=== PATIENT | female | born 1975 | race American Indian/Alaskan Native ===

== ENCOUNTER 2018-12-03 16:55 | Emergency (ER) | payer MEDICAID, OTHER ==
[2018-12-03 18:55] LABS: Basophils # (Auto) 0.1 K/mm3 (0.0-0.1); Basophils % (Auto) 0.7 % (0.0-1.8); Eosinophils # (Auto) 0.3 K/mm3 (0.0-0.4); Eosinophils % (Auto) 3.4 % (0.0-4.3); Hematocrit 35.6 % (30.3-42.9); Lymphocytes # (Auto) 3.1 K/mm3 (1.2-5.4); Lymphocytes % (Auto) 40.1 % (13.4-35.0); Mean Corpuscular HGB Conc 34 % (30-34); Mean Corpuscular Volume 86 fl (79-97); Monocytes # (Auto) 0.5 K/mm3 (0.0-0.8); Monocytes % (Auto) 6.5 % (0.0-7.3); Platelet Count 250 K/mm3 (140-440); Red Blood Count 4.15 M/mm3 (3.65-5.03); Red Cell Distribution Width 13.8 % (13.2-15.2)
[2018-12-03 19:02] VITALS: BP 136/96
[2018-12-03 19:07] LABS: BUN/Creatinine Ratio 23; Blood Urea Nitrogen 18 mg/dL (7-17); Calcium 8.8 mg/dL (8.4-10.2); Hemolysis Index 6
--- NOTE | 2018-12-03 19:16 | Emergency Department Report ---
ED Seizure HPI - General Chief Complaint: Seizure Stated Complaint: SEIZURE Time Seen by Provider: 12/03/18 18:04 Source: EMS Mode of arrival: Stretcher Limitations: No Limitations - History of Present Illness Initial Comments: 43 yo F reports hx of nonepileptic seizures, usually triggered by stress or pain. Pt was at physical therapy session for her back when she felt like a seizure was about to happen. Pt states she made the therapist aware that she was going to have a seziure, and asked that she not call EMS, however, EMS was called. Pt states she is not on any medications b/c they are nonepileptic. States she was worked up for seizures at [place] following the of her last child. Pt has no complaints at this time. MD Complaint: seizure -: This afternoon Witnessed:: Yes Trauma: No Seizure History: known seizure disorder Place: other (physical therapy) Associated Symptoms: denies other symptoms Treatments Prior to Arrival: none - Related Data Allergies Allergy/AdvReac Type Severity Reaction Status Date / Time No Known Allergies Allergy Unverified 12/03/18 17:49 ED Review of Systems ROS: Stated complaint: SEIZURE Other details as noted in HPI Comment: All other systems reviewed and negative Constitutional: denies: chills, fever Gastrointestinal: denies: nausea, vomiting Neurological: other (reports seizure) ED Past Medical Hx - Past Medical History Additional medical history: seizures - Surgical History Past Surgical History?: No - Social History Smoking Status: Never Smoker Substance Use Type: None ED Physical Exam - General Limitations: No Limitations General appearance: alert, in no apparent distress - Head Head exam: Present: atraumatic, normocephalic - Eye Eye exam: Present: normal appearance, PERRL, EOMI - ENT ENT exam: Present: mucous membranes moist - Neck Neck exam: Present: normal inspection - Respiratory Respiratory exam: Present: normal lung sounds bilaterally. Absent: respiratory distress - Cardiovascular Cardiovascular Exam: Present: regular rate, normal rhythm - GI/Abdominal GI/Abdominal exam: Present: soft. Absent: distended, tenderness - Extremities Exam Extremities exam: Present: normal inspection - Neurological Exam Neurological exam: Present: alert, oriented X3, CN II-XII intact. Absent: motor sensory deficit - Psychiatric Psychiatric exam: Present: normal affect, normal mood - Skin Skin exam: Present: warm, dry, intact, normal color. Absent: rash ED Course Vital Signs 12/03/18 12/03/18 12/03/18 17:37 17:43 17:45 Temperature 97.7 F Pulse Rate 160 H 81 71 Respiratory 28 H 16 20 Rate Blood Pressure 127/79 Blood Pressure 131/87 [Left] O2 Sat by Pulse 99 99 Oximetry 12/03/18 12/03/18 12/03/18 18:00 18:15 18:30 Temperature Pulse Rate 72 82 77 Respiratory 15 17 20 Rate Blood Pressure 129/91 132/89 131/86 Blood Pressure [Left] O2 Sat by Pulse 100 99 98 Oximetry 12/03/18 12/03/18 12/03/18 18:45 19:00 19:15 Temperature 98.5 F Pulse Rate 78 76 72 Respiratory 15 24 13 Rate Blood Pressure 145/101 136/96 Blood Pressure 136/96 [Left] O2 Sat by Pulse 98 99 Oximetry 12/03/18 12/03/18 12/03/18 19:28 19:30 19:55 Temperature Pulse Rate Respiratory 13 13 16 Rate Blood Pressure Blood Pressure [Left] O2 Sat by Pulse 99 Oximetry ED Medical Decision Making - Lab Data Result diagrams: 12/03/18 18:32 12/03/18 18:32 - Medical Decision Making - nonepileptic seizure per pt, triggered by pain during her physical therapy session - no neuro deficits present - labs unremarkable - pt not on any seizure meds - will d/c at this time - return precautions given - Differential Diagnosis seizure, electrolyte abnormality Critical care attestation.: If time is entered above; I have spent that time in minutes in the direct care of this critically ill patient, excluding procedure time. ED Disposition Clinical Impression: Seizure Disposition: DC-01 TO HOME OR SELFCARE Is pt being admited?: No Condition: Stable Instructions: Non-epileptic Seizures (ED) Referrals: PRIMARY CARE, [Referring] - 3-5 Days Time of Disposition: 19:16
[2018-12-03] MEDS ORDERED: IBUPROFEN PO ONE (19:28)
[2018-12-03] MEDS ORDERED: IBUPROFEN ONE (19:29)
== END 2018-12-03 19:55 | disposition home or self-care (01) ==
LOC: ED 16:55
DX: G40.909 Epilepsy, unspecified, not intractable, without status epilepticus (principal)
CPT/HCPCS: 36415; 80048; 85025; 99283

== ENCOUNTER 2020-09-22 17:32 | Emergency (ER) | payer MEDICAID ==
[2020-09-22] MEDS ORDERED: LORazepam 2 MG/ML VIAL IV ONE (17:47)
--- NOTE | 2020-09-22 17:52 | Emergency Department Report ---
ED Seizure HPI - General Chief Complaint: Seizure Stated Complaint: SEIZURE Time Seen by Provider: 09/22/20 17:45 Source: patient, EMS Mode of arrival: Stretcher Limitations: Altered Mental Status - History of Present Illness Initial Comments: Patient is 45 years old female with history of nonepileptic seizure. Patient brought to the emergency room via EMS from home after patient daughter called EMS. EMS stated that patient was talking on the phone and started shaking. Upon arrival to the ER patient is opening her eyes and shaking her right upper extremity. Patient is unable to provide information at this time. I reviewed patient records from last visit patient had similar presentation and discharged home after that. Patient at that time told the ER physician that whenever she had a stress she will have seizure. Patient stated that she has been worked up for seizure at [facility] but she is not on any antiseizure medication. Patient received 2 mg of Ativan by EMS. MD Complaint: possible seizure -: Sudden Witnessed:: Yes Trauma: No Seizure History: known seizure disorder Place: home Possible Precipitating Event: none Treatments Prior to Arrival: benzodiazepines - Related Data Allergies Allergy/AdvReac Type Severity Reaction Status Date / Time No Known Allergies Allergy Unverified 12/03/18 17:49 ED Review of Systems ROS: Stated complaint: SEIZURE Other details as noted in HPI Comment: All other systems reviewed and negative Constitutional: denies: chills, fever Respiratory: denies: cough, shortness of breath, SOB with exertion Gastrointestinal: denies: abdominal pain, nausea, vomiting Musculoskeletal: denies: back pain Neurological: denies: headache, weakness ED Past Medical Hx - Past Medical History Additional medical history: seizures - Social History Smoking Status: Never Smoker Substance Use Type: None ED Physical Exam - General Limitations: Altered Mental Status General appearance: alert, other (Actively seizing.) - Head Head exam: Present: atraumatic, normocephalic, normal inspection - Eye Eye exam: Present: normal appearance, PERRL - ENT ENT exam: Present: normal exam, normal orophraynx, mucous membranes moist - Neck Neck exam: Present: normal inspection, full ROM. Absent: tenderness, meningismus - Respiratory Respiratory exam: Present: normal lung sounds bilaterally - Cardiovascular Cardiovascular Exam: Present: regular rate, normal rhythm, normal heart sounds - GI/Abdominal GI/Abdominal exam: Present: soft, normal bowel sounds. Absent: distended, tenderness, guarding, rebound, rigid, organomegaly, mass, bruit, pulsatile mass, hernia - Extremities Exam Extremities exam: Present: normal inspection, full ROM, normal capillary refill. Absent: calf tenderness - Back Exam Back exam: Present: normal inspection, full ROM. Absent: CVA tenderness (R), CVA tenderness (L) - Neurological Exam Neurological exam: Present: altered, CN II-XII intact - Skin Skin exam: Present: warm, intact, normal color ED Course Vital Signs 09/22/20 09/22/20 09/22/20 17:35 17:55 18:00 Temperature 99.4 F Pulse Rate 109 H Respiratory 30 H Rate Blood Pressure 133/98 Blood Pressure [Left] O2 Sat by Pulse 97 96 Oximetry 09/22/20 09/22/20 09/22/20 18:16 18:20 18:30 Temperature Pulse Rate 111 H 109 H Respiratory 29 H 18 14 Rate Blood Pressure 140/98 152/99 Blood Pressure [Left] O2 Sat by Pulse 97 97 98 Oximetry 09/22/20 09/22/20 09/22/20 18:45 18:52 19:45 Temperature 98.0 F Pulse Rate 124 H 68 116 H Respiratory 25 H 17 24 Rate Blood Pressure 139/102 Blood Pressure 93/58 149/100 [Left] O2 Sat by Pulse 98 98 99 Oximetry ED Medical Decision Making - Lab Data Result diagrams: 09/22/20 18:17 09/22/20 18:17 - Radiology Data Radiology results: report reviewed - Medical Decision Making Patient is 45 years old female with history of nonepileptic seizure. Patient brought to the emergency room via EMS from home after patient daughter called EMS. EMS stated that patient was talking on the phone and started shaking. Upon arrival to the ER patient is opening her eyes and shaking her right upper extremity. Patient is unable to provide information at this time. I reviewed patient records from last visit patient had similar presentation and discharged home after that. Patient at that time told the ER physician that whenever she had a stress she will have seizure. Patient stated that she has been worked up for seizure at [facility] but she is not on any antiseizure medication. Patient received 2 mg of Ativan by EMS. Patient now is work, alert and oriented x3. Patient stated that she has been diagnosed with psychogenic seizure. Patient stated that she is feeling better. Labs reviewed and is unremarkable except for methamphetamine. CT brain is negative for acute finding. Patient vies to follow-up with her neurologist and psychiatrist in the next 2 to 3 days and to return to the ER she develop any new symptoms. Critical care attestation.: If time is entered above; I have spent that time in minutes in the direct care of this critically ill patient, excluding procedure time. ED Disposition Clinical Impression: Psychogenic nonepileptic seizure, Methamphetamine abuse Disposition: - TO HOME OR SELFCARE Is pt being admited?: No Condition: Stable Instructions: Non-Epileptic Seizures, Adult, Methamphetamines Use Disorder Referrals: PRIMARY CARE, [Referring] - 3-5 Days
[2020-09-22 19:13] LABS: Hematocrit 41.3 % (30.3-42.9); Hemoglobin 13.8 gm/dl (10.1-14.3); Mean Corpuscular HGB Conc 33 % (30-34); Mean Corpuscular Volume 88 fl (79-97); Platelet Count 212 K/mm3 (140-440); Red Blood Count 4.68 M/mm3 (3.65-5.03); Red Cell Distribution Width 14.4 % (13.2-15.2)
[2020-09-22 19:34] LABS: Basophils % (Auto) 0.2 % (0.0-1.8); Eosinophils % (Auto) 0.1 % (0.0-4.3); Lymphocytes % (Auto) 16.8 % (13.4-35.0); Mean Platelet Volume 8.2 fl (6-12); Monocytes % (Auto) 2.4 % (0.0-7.3)
[2020-09-22 19:35] LABS: Lymphocytes # (Auto) 0.9 K/mm3 (1.2-5.4); Monocytes # (Auto) 0.1 K/mm3 (0.0-0.8)
[2020-09-22 20:22] LABS: Bilirubin,Urine NEG (Negative); Blood,Urine SM (Negative); Color,Urine Straw (Yellow); Protein,Urine <15 mg/dL mg/dL (Negative); Urobilinogen,Urine < 2.0 mg/dL (<2.0); WBC,Urine < 1.0 /HPF (0.0-6.0)
[2020-09-22 20:30] LABS: Amphetamine Screen,Urine PRESUMPTIVE POSITIVE; Benzodiazepines Screen,Urine PRESUMPTIVE NEGATIVE; Cannabinoid Screen,Urine PRESUMPTIVE NEGATIVE; Cocaine Screen,Urine PRESUMPTIVE NEGATIVE; Methadone Screen,Urine PRESUMPTIVE NEGATIVE; Opiate Screen,Urine PRESUMPTIVE NEGATIVE
--- NOTE | 2020-09-22 20:47 | Cat Scan Report ---
CT HEAD WITHOUT CONTRAST INDICATION / CLINICAL INFORMATION: Seizure/high blood pressure. TECHNIQUE: All CT scans at this location are performed using CT dose reduction for ALARA by means of automated exposure control. COMPARISON: None available. FINDINGS: HEMORRHAGE: None. EXTRA-AXIAL SPACES: Normal in size and morphology for the patient's age. VENTRICULAR SYSTEM: Normal in size and morphology for the patient's age. CEREBRAL PARENCHYMA: No significant abnormality. No acute territorial infarct. MIDLINE SHIFT / HERNIATION: None. CEREBELLUM / BRAINSTEM: No significant abnormality. ORBITS: Normal as visualized. SOFT TISSUES: No significant abnormality. SKULL: No significant abnormality. PARANASAL SINUSES / MASTOID AIR CELLS: Small mucous retention cyst in the right maxillary sinus. ADDITIONAL FINDINGS: None. IMPRESSION: 1. No acute intracranial abnormality. Signer Name: Mis Gonzalez MD Signed: 09/22/2020 8:42 PM Workstation Name: [id number]
[2020-09-22] MEDS ORDERED: SODIUM CHLORIDE 0.9% 500 ML 500 ML IV ONE (21:01)
[2020-09-22 21:14] LABS: Alanine Aminotransferase 36 units/L (7-56); Albumin 4.3 g/dL (3.9-5); BUN/Creatinine Ratio 14; Bilirubin,Direct < 0.2 mg/dL (0-0.2); Blood Urea Nitrogen 11 mg/dL (7-17); Calcium 9.1 mg/dL (8.4-10.2); Hemolysis Index 28
[2020-09-22 21:41] VITALS: BP 141/99
== END 2020-09-22 22:00 | disposition home or self-care (01) ==
LOC: ED 17:32
DX: G40.909 Epilepsy, unspecified, not intractable, without status epilepticus (principal); F15.10 Other stimulant abuse, uncomplicated
CPT/HCPCS: 36415; 70450; 80048; 80076; 80307; 81001; 84703; 85025; 96361; 96374; 99284; J2060; J7040

== ENCOUNTER 2020-09-23 12:19 | Emergency (ER) | payer MEDICAID ==
--- NOTE | 2020-09-23 15:17 | Emergency Department Report ---
ED General Adult HPI - General Chief complaint: Seizure Stated complaint: SEIZURE PUI?: No Time Seen by Provider: 09/23/20 13:35 Source: EMS Mode of arrival: Wheelchair Limitations: No Limitations - History of Present Illness Initial comments: Is a 45-year-old female who states "I have pseudoseizures". She arrives ambulatory to triage. She states that she has been evaluated by this before and here for 4 hours yesterday. Review of her record and labs from yesterday indicates: - Medical Decision Making Patient is 45 years old female with history of nonepileptic seizure. Patient brought to the emergency room via EMS from home after patient daughter called EMS. EMS stated that patient was talking on the phone and started shaking. Upon arrival to the ER patient is opening her eyes and shaking her right upper extremity. Patient is unable to provide information at this time. I reviewed patient records from last visit patient had similar presentation and discharged home after that. Patient at that time told the ER physician that whenever she had a stress she will have seizure. Patient stated that she has been worked up for seizure at [facility] but she is not on any antiseizure medication. Patient received 2 mg of Ativan by EMS. Patient now is work, alert and oriented x3. Patient stated that she has been diagnosed with psychogenic seizure. Patient stated that she is feeling better. Labs reviewed and is unremarkable except for methamphetamine. CT brain is negative for acute finding. Patient vies to follow-up with her neurologist and psychiatrist in the next 2 to 3 days and to return to the ER she develop any new symptoms. Critical care attestation.: If time is entered above; I have spent that time in minutes in the direct care of this critically ill patient, excluding procedure time. ED Disposition Clinical Impression: Psychogenic nonepileptic seizure, Methamphetamine abuse The patient tells me additionally she was diagnosed at [place] with pseudoseizures. She states she was admitted overnight and so diagnosed. She states that she was referred to a psychiatrist but "could not get an appointment". She denies being on any medication for psychiatric condition or problems with her nerves. However on reassessment when asked about her positive amphetamine screen from yesterday, she states she is taking Adderall. Her laboratory database from yesterday was all within acceptable limits. Her CT from yesterday was negative for anything acute. The patient states that she has been having "pseudoseizures today". She denies any injury. She does not complain of any further problem. Actually upon my exam she is not having any abnormal involuntary movements of any type. Associated Symptoms: denies other symptoms - Related Data Allergies Allergy/AdvReac Type Severity Reaction Status Date / Time No Known Allergies Allergy Unverified 12/03/18 17:49 ED Review of Systems ROS: Stated complaint: SEIZURE Other details as noted in HPI Constitutional: denies: chills, fever Eyes: denies: eye pain ENT: denies: ear pain, throat pain Respiratory: denies: cough, shortness of breath Cardiovascular: denies: chest pain, palpitations Endocrine: no symptoms reported Gastrointestinal: denies: abdominal pain, nausea, diarrhea Genitourinary: denies: urgency, dysuria Musculoskeletal: denies: back pain Skin: denies: rash, lesions Neurological: denies: headache, weakness, paresthesias Psychiatric: as per HPI. denies: anxiety, depression Hematological/Lymphatic: denies: easy bleeding, easy bruising ED Past Medical Hx - Past Medical History Additional medical history: pseudoseizures - Social History Smoking Status: Unknown if ever smoked Substance Use Type: Methamphetamines (Per yesterday's record. Patient claims due to Adderall.) ED Physical Exam - General Limitations: No Limitations General appearance: alert, in no apparent distress - Head Head exam: Present: atraumatic, normocephalic - Eye Eye exam: Present: normal appearance. Absent: scleral icterus - ENT ENT exam: Present: mucous membranes moist - Neck Neck exam: Present: normal inspection - Respiratory Respiratory exam: Present: normal lung sounds bilaterally. Absent: respiratory distress - Cardiovascular Cardiovascular Exam: Present: regular rate, normal rhythm. Absent: systolic murmur, diastolic murmur, rubs, gallop - GI/Abdominal GI/Abdominal exam: Present: soft, normal bowel sounds. Absent: distended, tenderness, guarding, rebound - Extremities Exam Extremities exam: Present: normal inspection - Back Exam Back exam: Present: normal inspection - Neurological Exam Neurological exam: Present: alert, oriented X3, CN II-XII intact. Absent: motor sensory deficit - Psychiatric Psychiatric exam: Present: normal affect, normal mood - Skin Skin exam: Present: warm, dry, intact, normal color. Absent: rash ED Course - Reevaluation(s) Reevaluation #1: Patient was observed in the emergency department for some time. She had no recurrent "pseudoseizures". Vital signs are stable. I do not see any indication for repeat medical screening again today. I do not think the patient is a good candidate for Adderall. She states that she did not get this medicine from a psychiatrist that is treating her now. Her history is confusing. However, I recommended to her that she reviewed the indication continuing this medication if she is taking this with the prescribing physician considering her history of "pseudoseizures". 09/23/20 15:22 ED Medical Decision Making - EKG Data -: EKG Interpreted by Me EKG shows normal: sinus rhythm, axis, intervals, QRS complexes, ST-T waves Rate: normal - EKG Data Interpretation: no acute changes Critical care attestation.: If time is entered above; I have spent that time in minutes in the direct care of this critically ill patient, excluding procedure time. ED Disposition Clinical Impression: Pseudoseizures Disposition: DC-01 TO HOME OR SELFCARE Is pt being admited?: No Does the pt Need Aspirin: No Condition: Stable Instructions: Non-Epileptic Seizures, Adult, Conversion Disorder Additional Instructions: It is possible medication like Adderall could have adverse effects in somebody that has "pseudoseizures". I ordinarily would not recommend this. Please review this with your prescribing physician if it is a prescribed medication. I referred you to [facility] and [facility] should you need referrals. Referrals: PRIMARY CARE [Primary Care Provider] - 3-5 Days [facility] [Outside] - 3-5 Days [facility] [Provider Group] - 3-5 Days Time of Disposition: 15:24
[2020-09-23 16:35] VITALS: BP 132/92
--- NOTE | 2020-09-24 17:50 | Electrocardiograph Report ---
[facility] Test Date: 2020-09-23 Test Time: 13:18:08 Pat Name: SARAH LARA Department: Room: Gender: F Digital Specialist: MEG : 1975 Requested By: ASHLEY DUTTA Order Number: [id number] Reading MD: Duane Edwards Measurements Intervals [place] Rate: 69 P: 41 MN: 131 QRS: 55 QRSD: 94 T: 40 QT: 408 QTc: 438 Interpretive Statements Sinus rhythm No previous ECG available for comparison Electronically Signed On 09-24-2020 17:49:34 EDT by Duane Edwards
== END 2020-09-23 15:45 | disposition home or self-care (01) ==
LOC: ED 12:19
DX: R56.9 Unspecified convulsions (principal)
CPT/HCPCS: 93005